=== PATIENT | female | born 1975 | race Caucasian/White ===

== ENCOUNTER 2016-08-27 14:46 | Emergency (ER) | payer MEDICAID ==
[2016-08-27 19:36] LABS: BASOPHILS 0.3 % (0-2); EOSINOPHILS 0 % (0-7); HEMATOCRIT 40.5 % (36.0-48.0); HEMOGLOBIN 13.6 g/dL (12-16); IMMATURE GRANULOCYTES 0.5 % (0-5); LYMPHOCYTES 37.9 % (15-50); MCH 31.1 pg (26.0-34.0); MCHC 33.6 g/dL (31.0-37.0); MCV 92.5 fL (80.0-100.0); MEAN PLATELET VOLUME 9.2 fL (7.4-10.4); MONOCYTES 10.2 % (2-11); NEUTROPHILS 51.1 % (40-80); PLATELET COUNT 139 10x3/uL (130-400); RBC 4.38 10x6/uL (4.00-5.40); RDW 13.7 % (11.5-14.5); WBC 3.9 10x3/uL (4.8-10.8)
[2016-08-27 19:55] LABS: ALBUMIN 3.2 g/dL (3.4-5.0); ALKALINE PHOSPHATASE 276 U/L (46-116); ALT (SGPT) 83 U/L (10-68); BILIRUBIN - TOTAL 0.47 mg/dL (0.2-1.3); CALC OSMOLALITY 281 mosm/kg (275-300); CALCIUM 8.6 mg/dL (8.5-10.1); CARBON DIOXIDE 31.3 mmol/L (21.0-32.0); CHLORIDE - SERUM 103 mmol/L (98-107); CREATININE - SERUM 0.6 mg/dL (0.6-1.3); GLUCOSE 96 mg/dL (74-106); POTASSIUM - SERUM 3.8 mmol/L (3.5-5.1); SODIUM 142 mmol/L (136-145); UREA NITROGEN 11 mg/dL (7-18); eGFR NON AFRICAN AMERICAN > 90 mL/min (90-120)
== END 2016-08-27 21:15 | disposition home or self-care (01) ==
LOC: D.ER 14:46
PROVIDERS: Physician Assistant Medical
DX: L02.413 Cutaneous abscess of right upper limb (principal); B95.62 Methicillin resistant Staphylococcus aureus infection as the cause of diseases classified elsewhere; I88.9 Nonspecific lymphadenitis, unspecified; F32.9 Major depressive disorder, single episode, unspecified; F41.9 Anxiety disorder, unspecified; F15.20 Other stimulant dependence, uncomplicated

== ENCOUNTER 2017-01-09 22:22 | Emergency (ER) | payer MEDICAID | END 2017-01-09 23:47 | disposition home or self-care (01) | LOC: D.ER 22:22 | DX: L02.11 Cutaneous abscess of neck (principal) ==

== ENCOUNTER 2017-09-03 16:59 | Emergency (ER) | payer MEDICAID ==
[~2017-09-03] VITALS: Ht 162.6 cm; Wt 118.2 kg
[2017-09-03 17:32] VITALS: Ht 162.6 cm; Wt 118.2 kg
[2017-09-03] MEDS ORDERED: EFFEXOR XR75 MG PO (17:34)
[2017-09-03] MEDS ORDERED: BUPRENORPHIN-N1 EACH SL (17:34)
[2017-09-03] MEDS ORDERED: ROBAXIN500 MG PO (17:35)
[2017-09-03] MEDS ORDERED: NEURONTIN 300300 MG PO (17:35)
[2017-09-03] MEDS ORDERED: SYNTHROID137 MCG PO (17:36)
[2017-09-03] MEDS ORDERED: CLONAZEPAM0.5 MG/TAB PO (17:36)
[2017-09-03] MEDS ORDERED: PROVENTIL HFA6.7 GM INH (17:37)
[2017-09-03] MEDS ORDERED: FUROSEMIDE20 MG PO (17:58)
[2017-09-03 18:24] LABS: BASOPHILS 0.2 % (0-2); EOSINOPHILS 0.2 % (0-7); HEMOGLOBIN 12.8 g/dL (12-16); IMMATURE GRANULOCYTES 0.6 % (0-5); LYMPHOCYTES 31.1 % (15-50); MCH 30.3 pg (26.0-34.0); MCHC 33.7 g/dL (31.0-37.0); MCV 89.8 fL (80.0-100.0); MEAN PLATELET VOLUME 9.4 fL (7.4-10.4); NEUTROPHILS 55.9 % (40-80); PLATELET COUNT 144 10x3/uL (130-400); RBC 4.23 10x6/uL (4.00-5.40); RDW 13.2 % (11.5-14.5); WBC 4.9 10x3/uL (4.8-10.8)
[2017-09-03] MEDS ORDERED: VIBRAMYCIN 100100 MG PO (18:32)
[2017-09-03] MEDS ORDERED: VOLTAREN75 MG PO (18:32)
[2017-09-03 19:25] VITALS: BP 115/80
== END 2017-09-03 18:52 | disposition home or self-care (01) ==
LOC: D.ER 16:59
PROVIDERS: Emergency Medicine
DX: L03.116 Cellulitis of left lower limb (principal); L03.115 Cellulitis of right lower limb; M79.605 Pain in left leg; M79.604 Pain in right leg; F17.200 Nicotine dependence, unspecified, uncomplicated